=== PATIENT | male | born 2000 | race Caucasian/White ===

== ENCOUNTER 2023-12-14 10:28 | Emergency (ER) | payer OTHER, SELFPAY ==
[2023-12-14 10:47] VITALS: BP 131/84; PULSE 64; RESP 16; TEMP 36.8; O2SAT 100
--- NOTE | 2023-12-14 11:06 | ED.SKABFB ---
HPI - Skin/Abscess/Foreign Bdy General Chief complaint: Skin/Abscess/Foreign Body Stated complaint: Splinter left Foot Time Seen by Provider: 12/14/23 11:06 Source: patient and RN notes reviewed Mode of arrival: ambulatory Limitations: no limitations History of Present Illness HPI narrative: 23-year-old male presents with concern for a piece of wood in his left heel. He reports there was a toothpick in his carpet and he stepped on it yesterday. He denies drainage from the area. He denies redness, swelling, warmth he reports he believes there is about 1 cm of material in his foot complaint: foreign body Related Data Home Medications Medication Instructions Recorded Confirmed montelukast 10 mg tablet 10 mg PO HS 12/14/23 12/14/23 Allergies Allergy/AdvReac Type Severity Reaction Status Date / Time Penicillins AdvReac Mild HIVES Verified 12/14/23 10:45 Review of Systems Review of Systems: CONSTITUTIONAL: Denies malaise, chills, sweats, or fever. SKIN: Reports wooden foreign body in his left heel MUSCULOSKELETAL: Denies joint pain or myalgia. NEUROLOGIC: Denies headache. All systems reviewed & are unremarkable except as noted in HPI and below PMFSH Comments At time of signature, agree with nursing past medical, surgical, social and family history. There is no relevant family history pertinent to the presenting complaint Exam Narrative: GENERAL: Well-appearing, well-nourished, and in no acute distress. HEAD: Normocephalic, atraumatic. EYES: PERRLA, conjunctivae clear, and EOMI. ENT: Mucous membranes moist. Oropharynx without edema, erythema or lesions. NECK: Supple. No lymphadenopathy CHEST: Clear to auscultation. No respiratory distress. HEART: Regular rate and rhythm. SKIN: Warm, dry. Entry wound with palpable foreign body visible to the to the left heel NEURO: Alert and oriented x3. PSYCH: Normal mood and affect Course Course Emergency Course: Patient is aware of diagnosis, understands and agrees to treatment plan. Anticipatory guidance given. Patient agrees to follow-up as directed and is aware of reasons to seek care at the emergency department. Portions of this record may have been created with voice recognition software Level of Care: Express Care Visit Vital Signs Vital signs: Vital Signs Temperature 98.3 F 12/14/23 10:47 Pulse Rate 64 12/14/23 10:47 Respiratory Rate 16 12/14/23 10:47 Blood Pressure 131/84 12/14/23 10:47 Pulse Oximetry 100 12/14/23 10:47 Oxygen Delivery Room Air 12/14/23 10:47 Temperature 98.3 F 12/14/23 10:47 Pulse Rate 64 12/14/23 10:47 Respiratory Rate 16 12/14/23 10:47 Blood Pressure 131/84 12/14/23 10:47 Pulse Oximetry 100 12/14/23 10:47 Oxygen Delivery Room Air 12/14/23 10:47 Reviewed. Procedures Foreign Body Removal Foreign Body #1: Foreign Body Removal Date: 12/14/23 Foreign Body Removal Time: 11:15 Time Out Performed: yes Site: left Description of foreign body: other (toothpick) Sedation/Analgesia: other (lidocaine) Technique: incision made to facilitate removal Confirmed by:: palpation Complications: none Post-procedure exam: awake, alert Neurovascular: normal distal pulse Foreign Body Removal Narrative: completely removed MDM - Skin/Abscess/Foreign Bdy MDM Narrative Medical decision making narrative: I evaluated this patient in the express care. History is obtained from patient who is an independent historian and physical exam was performed.? Available medical records were reviewed. ? Exam findings and relevant testing show no acute concerns or changes; patient is non-toxic appearing and is in no distress. ? Differential diagnosis and treatment plan were discussed with the patient. Patient agrees with discussion and after shared medical decision making agrees with plan of care. All questions were answered to the patient's sa
== END 2023-12-14 11:30 | disposition home or self-care (01) ==
PROVIDERS: Emergency Provider Nurse Practitioner; PCP Family Medicine Adolescent Medicine
DX: S91.342A Puncture wound with foreign body, left foot, initial encounter (principal); W22.8XXA Striking against or struck by other objects, initial encounter
CPT/HCPCS: 10120; 99212; G0463